=== PATIENT | male | born 2005 | race Caucasian/White ===

== ENCOUNTER 2024-04-03 01:42 | Emergency (ER) | payer OTHER ==
[~2024-04-03] VITALS: Ht 182.9 cm; Wt 117.0 kg
[2024-04-03] MEDS ORDERED: LACTATED RINGER'S 1,000 ML IV ONE (02:00)
[2024-04-03] MEDS ORDERED: ondansetron HCL 4 MG/2 ML VIAL IV ONE (02:00)
[2024-04-03 02:12] LABS: BASOPHILS 0.7 % (0-2); EOSINOPHILS 2.1 % (0-6); HEMOGLOBIN 16.2 g/dL (12.0-18.0); LYMPHOCYTES 32.8 % (24-44); MCH 28.4 (27-36); MCHC 33.7 g/dl (30-36); MCV 84.4 fl (81-99); NEUTROPHILS 56.4 % (39-80); PLATELET COUNT 249 K/uL (140-440); RBC 5.69 M/ul (4.3-5.7)
[2024-04-03 02:23] LABS: ALBUMIN 4.4 g/dL (3.4-5.0); ALBUMIN/GLOBULIN RATIO 1.19 (1.1-2.4); ANION GAP 13.9 (7-21); BILIRUBIN, TOTAL 0.3 ng/dL (0.2-1.0); BUN/CREATININE RATIO 14.95 (6.0-28.6); CALCIUM 8.8 mg/dL (8.5-10.1); CREATININE, SERUM 1.07 mg/dL (0.70-1.30); POTASSIUM 3.9 mmol/L (3.5-5.1); PROTEIN, TOTAL 8.1 g/dL (6.4-8.2)
[2024-04-03] MEDS ORDERED: ONDANSETRON ODT8 MG PO (02:37)
[2024-04-03] MEDS ORDERED: ONDANSETRON 4 MG HOME.PACK SL ONE (02:45)
[2024-04-03 02:59] LABS: BILIRUBIN, URINE NEGATIVE (negative); BLOOD/HGB, URINE NEGATIVE (Negative); KETONE, URINE NEGATIVE (Negative); LEUK ESTERASE, URINE NEGATIVE (negative); NITRITE, URINE NEGATIVE (negative)
[2024-04-03 03:18] VITALS: BP 141/51
== END 2024-04-03 03:19 | disposition home or self-care (01) ==
LOC: ED 01:42
PROVIDERS: Family Medicine
DX: H43.391 Other vitreous opacities, right eye (principal); A05.9 Bacterial foodborne intoxication, unspecified
CPT/HCPCS: 36415; 70450; 80053; 81003; 83735; 85025; 96361; 96374; 99284-25; A9270; J2405; J7121